=== PATIENT | male | born 1990 | race Caucasian/White ===

== ENCOUNTER 2017-05-31 23:18 | Emergency (ER) | payer MEDICAID ==
[2017-05-31 23:46] LABS: HEMATOCRIT 39.4 % (42.0-54.0); HEMOGLOBIN 13.7 g/dL (13.5-17.5); LYMPHOCYTES 23.7 % (15-50); MCH 29.7 pg (26.0-34.0); MCHC 34.8 g/dL (31.0-37.0); MCV 85.5 fL (80.0-100.0); MEAN PLATELET VOLUME 8.5 fL (7.4-10.4); NEUTROPHILS 70.1 % (40-80); PLATELET COUNT 255 10x3/uL (130-400); RBC 4.61 10x6/uL (4.20-6.10); RDW 11.4 % (11.5-14.5); WBC 7.5 10x3/uL (4.8-10.8)
[2017-06-01 00:15] LABS: ALBUMIN 4.2 g/dL (3.4-5.0); ALKALINE PHOSPHATASE 45 U/L (46-116); ALT (SGPT) 26 U/L (10-68); BILIRUBIN - TOTAL 0.22 mg/dL (0.2-1.3); CALC OSMOLALITY 279 mosm/kg (275-300); CALCIUM 9.1 mg/dL (8.5-10.1); CARBON DIOXIDE 26.2 mmol/L (21.0-32.0); CHLORIDE - SERUM 104 mmol/L (98-107); CREATININE - SERUM 0.9 mg/dL (0.6-1.3); GLUCOSE 106 mg/dL (74-106); POTASSIUM - SERUM 3.6 mmol/L (3.5-5.1); PROTEIN - SERUM 7.8 g/dL (6.4-8.2); SODIUM 139 mmol/L (136-145); UREA NITROGEN 18 mg/dL (7-18); eGFR NON AFRICAN AMERICAN > 90 mL/min (90-120)
== END 2017-06-01 02:30 | disposition home or self-care (01) ==
LOC: D.ER 23:18
PROVIDERS: Emergency Medicine
DX: F41.9 Anxiety disorder, unspecified (principal); Z91.138 Patient's unintentional underdosing of medication regimen for other reason; F32.9 Major depressive disorder, single episode, unspecified; F17.200 Nicotine dependence, unspecified, uncomplicated

== ENCOUNTER 2017-06-04 14:03 | Emergency (ER) | payer MEDICAID ==
[2017-06-04 14:53] LABS: BASOPHILS 0.2 % (0-2); EOSINOPHILS 1.1 % (0-7); HEMATOCRIT 37.9 % (42.0-54.0); HEMOGLOBIN 13.4 g/dL (13.5-17.5); IMMATURE GRANULOCYTES 0.2 % (0-5); LYMPHOCYTES 23.1 % (15-50); MCH 30.5 pg (26.0-34.0); MCHC 35.4 g/dL (31.0-37.0); MCV 86.1 fL (80.0-100.0); MEAN PLATELET VOLUME 8.9 fL (7.4-10.4); MONOCYTES 5.3 % (2-11); NEUTROPHILS 70.1 % (40-80); PLATELET COUNT 229 10x3/uL (130-400); RDW 11.6 % (11.5-14.5); WBC 5.3 10x3/uL (4.8-10.8)
[2017-06-04 15:12] LABS: ALBUMIN 3.7 g/dL (3.4-5.0); ALKALINE PHOSPHATASE 44 U/L (46-116); ALT (SGPT) 25 U/L (10-68); BILIRUBIN - TOTAL 0.19 mg/dL (0.2-1.3); CALC OSMOLALITY 280 mosm/kg (275-300); CALCIUM 8.3 mg/dL (8.5-10.1); CARBON DIOXIDE 26.8 mmol/L (21.0-32.0); CHLORIDE - SERUM 105 mmol/L (98-107); CREATININE - SERUM 0.8 mg/dL (0.6-1.3); GLUCOSE 120 mg/dL (74-106); POTASSIUM - SERUM 3.5 mmol/L (3.5-5.1); PROTEIN - SERUM 7.1 g/dL (6.4-8.2); SODIUM 141 mmol/L (136-145); UREA NITROGEN 11 mg/dL (7-18); VALPROIC ACID (DEPAKOTE) 9.5 ug/mL (50.0-100.0); eGFR NON AFRICAN AMERICAN > 90 mL/min (90-120)
[2017-06-04 19:26] LABS: UDS - AMPHET NEGATIVE QUAL (NEGATIVE); UDS - BARB NEGATIVE QUAL (NEGATIVE); UDS - BENZO NEGATIVE QUAL (NEGATIVE); UDS - COCAINE NEGATIVE QUAL (NEGATIVE); UDS - METH NEGATIVE QUAL (NEGATIVE); UDS - OPIATE NEGATIVE QUAL (NEGATIVE); UDS - PCP NEGATIVE QUAL (NEGATIVE); UDS - THC NEGATIVE QUAL (NEGATIVE)
[2017-06-04 19:38] LABS: APPEARANCE HAZY (CLEAR); BILIRUBIN NEGATIVE (NEGATIVE); COLOR YELLOW (YELLOW); GLUCOSE NEGATIVE (NEGATIVE); KETONE NEGATIVE (NEGATIVE); LEUKOCYTE ESTERASE NEGATIVE (NEGATIVE); NITRITE NEGATIVE (NEGATIVE); PROTEIN NEGATIVE (NEGATIVE); UROBILINOGEN NORMAL (NORMAL)
== END 2017-06-05 17:15 | disposition short-term general hospital (02) ==
LOC: D.ER 14:03
PROVIDERS: Emergency Medicine
DX: R45.851 Suicidal ideations (principal); F32.9 Major depressive disorder, single episode, unspecified

== ENCOUNTER 2017-11-04 18:51 | Emergency (ER) | payer MEDICAID ==
[2017-11-04 19:33] LABS: BASOPHILS 0.1 % (0-2); EOSINOPHILS 1.5 % (0-7); HEMATOCRIT 42.4 % (42.0-54.0); HEMOGLOBIN 14.9 g/dL (13.5-17.5); IMMATURE GRANULOCYTES 0.2 % (0-5); LYMPHOCYTES 23.7 % (15-50); MCHC 35.1 g/dL (31.0-37.0); MCV 88.3 fL (80.0-100.0); MEAN PLATELET VOLUME 8.8 fL (7.4-10.4); MONOCYTES 6.3 % (2-11); NEUTROPHILS 68.2 % (40-80); WBC 8.6 10x3/uL (4.8-10.8)
[2017-11-04 19:36] LABS: PLATELET COUNT 363 10x3/uL (130-400)
[2017-11-04 20:01] LABS: ALT (SGPT) 24 U/L (10-68); CALC OSMOLALITY 279 mosm/kg (275-300); CALCIUM 9.6 mg/dL (8.5-10.1); CARBON DIOXIDE 31.4 mmol/L (21.0-32.0); CHLORIDE - SERUM 102 mmol/L (98-107); CREATININE - SERUM 0.8 mg/dL (0.6-1.3); GLUCOSE 105 mg/dL (74-106); POTASSIUM - SERUM 3.7 mmol/L (3.5-5.1); SODIUM 141 mmol/L (136-145); UREA NITROGEN 11 mg/dL (7-18); eGFR NON AFRICAN AMERICAN > 90 mL/min (90-120)
[2017-11-04 20:17] LABS: ALKALINE PHOSPHATASE 73 U/L (46-116); BILIRUBIN - TOTAL 0.16 mg/dL (0.2-1.3); PROTEIN - SERUM 8.1 g/dL (6.4-8.2)
== END 2017-11-04 20:30 | disposition home or self-care (01) ==
LOC: D.ER 18:51
PROVIDERS: Physician Assistant
DX: G43.909 Migraine, unspecified, not intractable, without status migrainosus (principal); F17.200 Nicotine dependence, unspecified, uncomplicated

== ENCOUNTER 2017-11-05 16:25 | Emergency (ER) | payer MEDICAID | END 2017-11-05 18:24 | disposition home or self-care (01) | LOC: D.ER 16:25 | DX: R11.0 Nausea (principal); F17.200 Nicotine dependence, unspecified, uncomplicated ==

== ENCOUNTER 2017-12-15 15:46 | Inpatient (IN) | payer MEDICAID ==
[~2017-12-15] VITALS: Ht 175.3 cm; Wt 78.0 kg
--- NOTE | ~2017-12-15 | CN ---
PATIENT NAME:DAVID FABIAN MEDICAL RECORD: [id number] : 89 LOCATION:[facility] – [place]- ADMIT DATE: 12/15/17 ACCOUNT: [id number] CONSULTING PHYSICIAN: LANCE NINO MD REFERRING PHYSICIAN: JESUS BRICEÑO MD DATE OF CONSULTATION: 12/16/2017 IDENTIFYING DATA: The patient is 27 years old and he is admitted to the hospital on a voluntary basis. CHIEF COMPLAINT: Overdose. HISTORY OF PRESENT ILLNESS: The patient had some suicidal thoughts, took a large amount of Depakote and did so with the intention of killing himself. It is unclear to me how he made his way to the hospital or more accurately who called the ambulance, but the patient made suicidal statements after arriving here. He have a Depakote level that is still more than twice the upper range of therapeutic and he is having the sedation associated with a toxic Depakote level. Other vital indicators are stable. His Depakote level has declined. MENTAL STATUS EXAMINATION: The patient is sleepy. He is arousable, but not interviewable. ASSESSMENT: 1. Major depression. 2. Status post Depakote overdose. PLAN: The patient should be transitioned to acute inpatient psychiatric care once medically stabilized. He has a history of depression. I do not know if he has a history of overdose. 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 I do not have information about how acute that is. Once again, once he is medically stable, he should be transferred to acute inpatient psychiatric care to stabilize his mood and that should be a priority in terms of addressing his additional or other needs. TRANSINT:[id number] Voice Confirmation ID: [id number] DOCUMENT ID: [id number] LANCE NINO MD at 1024 CC: [id number] DICTATION DATE: 12/16/17 1101 SCRUB NURSE: 12/16/17 1123 DIS IN 12/17/17 [id number] [place] [id number]
[2017-12-15 16:17] LABS: BASOPHILS 0.2 % (0-2); EOSINOPHILS 2.1 % (0-7); HEMATOCRIT 38.2 % (42.0-54.0); HEMOGLOBIN 13.1 g/dL (13.5-17.5); LYMPHOCYTES 29.5 % (15-50); MCH 30.4 pg (26.0-34.0); MCHC 34.3 g/dL (31.0-37.0); MCV 88.6 fL (80.0-100.0); MONOCYTES 9.2 % (2-11); RBC 4.31 10x6/uL (4.20-6.10); RDW 11.9 % (11.5-14.5); WBC 4.2 10x3/uL (4.8-10.8)
[2017-12-15 16:23] LABS: PLATELET COUNT 229 10x3/uL (130-400)
[2017-12-15 16:45] LABS: ALBUMIN 3.7 g/dL (3.4-5.0); ALKALINE PHOSPHATASE 63 U/L (46-116); ALT (SGPT) 15 U/L (10-68); BILIRUBIN - TOTAL 0.17 mg/dL (0.2-1.3); CALC OSMOLALITY 280 mosm/kg (275-300); CALCIUM 8.7 mg/dL (8.5-10.1); CARBON DIOXIDE 26.8 mmol/L (21.0-32.0); CHLORIDE - SERUM 105 mmol/L (98-107); CREATININE - SERUM 0.9 mg/dL (0.6-1.3); GLUCOSE 136 mg/dL (74-106); POTASSIUM - SERUM 3.8 mmol/L (3.5-5.1); SODIUM 140 mmol/L (136-145); UREA NITROGEN 13 mg/dL (7-18); eGFR NON AFRICAN AMERICAN > 90 mL/min (90-120)
[2017-12-15 16:46] LABS: VALPROIC ACID (DEPAKOTE) 92.4 ug/mL (50.0-100.0)
[2017-12-15 17:19] LABS: APPEARANCE HAZY (CLEAR); BILIRUBIN NEGATIVE (NEGATIVE); COLOR YELLOW (YELLOW); GLUCOSE NEGATIVE (NEGATIVE); KETONE NEGATIVE (NEGATIVE); NITRITE NEGATIVE (NEGATIVE); PROTEIN NEGATIVE (NEGATIVE); SPECIFIC GRAVITY 1.015 (1.005-1.020); UROBILINOGEN NORMAL (NORMAL)
[2017-12-15 17:21] LABS: AMORPHOUS SEDIMENT >1+ /lpf (NONE SEEN); BACTERIA FEW /hpf (NONE SEEN); WHITE CELLS - URINE 0-5 /hpf (0-5)
[2017-12-15 17:46] LABS: UDS - AMPHET NEGATIVE QUAL (NEGATIVE); UDS - BARB NEGATIVE QUAL (NEGATIVE); UDS - BENZO NEGATIVE QUAL (NEGATIVE); UDS - COCAINE NEGATIVE QUAL (NEGATIVE); UDS - OPIATE NEGATIVE QUAL (NEGATIVE); UDS - PCP NEGATIVE QUAL (NEGATIVE); UDS - THC NEGATIVE QUAL (NEGATIVE)
[2017-12-16 06:09] LABS: BASOPHILS 0 % (0-2); EOSINOPHILS 0.3 % (0-7); HEMATOCRIT 39.2 % (42.0-54.0); HEMOGLOBIN 13.1 g/dL (13.5-17.5); IMMATURE GRANULOCYTES 0.3 % (0-5); LYMPHOCYTES 19.9 % (15-50); MCH 30.1 pg (26.0-34.0); MCHC 33.4 g/dL (31.0-37.0); MCV 90.1 fL (80.0-100.0); MEAN PLATELET VOLUME 9.1 fL (7.4-10.4); MONOCYTES 1.5 % (2-11); PLATELET COUNT 205 10x3/uL (130-400); RBC 4.35 10x6/uL (4.20-6.10); WBC 3.3 10x3/uL (4.8-10.8)
[2017-12-16 06:41] LABS: ALBUMIN 3.3 g/dL (3.4-5.0); ALKALINE PHOSPHATASE 59 U/L (46-116); CALC OSMOLALITY 290 mosm/kg (275-300); CALCIUM 7.9 mg/dL (8.5-10.1); CARBON DIOXIDE 24.3 mmol/L (21.0-32.0); CHLORIDE - SERUM 110 mmol/L (98-107); GLUCOSE 115 mg/dL (74-106); POTASSIUM - SERUM 3.8 mmol/L (3.5-5.1); PROTEIN - SERUM 6.6 g/dL (6.4-8.2); SODIUM 146 mmol/L (136-145); UREA NITROGEN 11 mg/dL (7-18); eGFR NON AFRICAN AMERICAN > 90 mL/min (90-120)
[2017-12-16 06:48] LABS: ALT (SGPT) 36 U/L (10-68)
[2017-12-16 06:49] LABS: VALPROIC ACID (DEPAKOTE) 246.7 ug/mL (50.0-100.0)
[2017-12-16] MEDS ORDERED: BENZTROPINE ME0.5 MG (11:58)
[2017-12-16] MEDS ORDERED: LOXAPINE5 MG (11:58)
[2017-12-16] MEDS ORDERED: DEPAKOTE500 MG (11:58)
[2017-12-16] MEDS ORDERED: PAROXETINE HCL10 MG (11:59)
== END 2017-12-17 01:09 | disposition short-term general hospital (02) | DRG 918 ==
LOC: D.ER 15:46 → D.SDCHOLD 18:08
PROVIDERS: Emergency Medicine; Family Medicine
DX: T42.6X2A Poisoning by other antiepileptic and sedative-hypnotic drugs, intentional self-harm, initial encounter (principal); T43.592A Poisoning by other antipsychotics and neuroleptics, intentional self-harm, initial encounter; T43.222A Poisoning by selective serotonin reuptake inhibitors, intentional self-harm, initial encounter; T44.3X2A Poisoning by other parasympatholytics [anticholinergics and antimuscarinics] and spasmolytics, intentional self-harm, initial encounter; F32.9 Major depressive disorder, single episode, unspecified; D43.0 Neoplasm of uncertain behavior of brain, supratentorial

== ENCOUNTER 2018-04-26 16:23 | Emergency (ER) | payer MEDICAID ==
[~2018-04-26] VITALS: Ht 175.3 cm; Wt 72.8 kg
[~2018-04-26 16:23] MED LIST: BENZTROPINE ME0.5 MG; DEPAKOTE500 MG; LOXAPINE5 MG; PAROXETINE HCL10 MG
[2018-04-26 16:26] VITALS: Ht 175.3 cm; Wt 72.8 kg
[2018-04-26] MEDS ORDERED: SEROQUEL300 MG PO (16:28)
[2018-04-26] MEDS ORDERED: INVEGA6 MG/BLIST PO (16:28)
[2018-04-26] MEDS ORDERED: LITHOBID 300 M300 MG PO (16:28)
[2018-04-26] MEDS ORDERED: TRILEPTAL300 MG PO (16:29)
[2018-04-26 17:14] LABS: BASOPHILS 0.1 % (0-2); HEMATOCRIT 38.9 % (42.0-54.0); HEMOGLOBIN 13.6 g/dL (13.5-17.5); IMMATURE GRANULOCYTES 0.1 % (0-5); LYMPHOCYTES 21.9 % (15-50); MCH 30.4 pg (26.0-34.0); MEAN PLATELET VOLUME 8.8 fL (7.4-10.4); NEUTROPHILS 68.9 % (40-80); PLATELET COUNT 213 10x3/uL (130-400); RBC 4.47 10x6/uL (4.20-6.10); RDW 11.9 % (11.5-14.5); WBC 7.1 10x3/uL (4.8-10.8)
[2018-04-26 17:17] LABS: APPEARANCE HAZY (CLEAR); COLOR YELLOW (YELLOW)
[2018-04-26 17:18] LABS: BILIRUBIN NEGATIVE (NEGATIVE); GLUCOSE NEGATIVE (NEGATIVE); KETONE NEGATIVE (NEGATIVE); NITRITE NEGATIVE (NEGATIVE); PROTEIN NEGATIVE (NEGATIVE); UROBILINOGEN NORMAL (NORMAL); WHITE CELLS - URINE OCC /hpf (0-5)
[2018-04-26 17:19] LABS: AMORPHOUS SEDIMENT <1+ /lpf (NONE SEEN); BACTERIA MODERATE /hpf (NONE SEEN)
[2018-04-26 17:24] LABS: UDS - AMPHET NEGATIVE QUAL (NEGATIVE); UDS - BARB NEGATIVE QUAL (NEGATIVE); UDS - BENZO NEGATIVE QUAL (NEGATIVE); UDS - COCAINE NEGATIVE QUAL (NEGATIVE); UDS - OPIATE NEGATIVE QUAL (NEGATIVE); UDS - PCP NEGATIVE QUAL (NEGATIVE); UDS - THC POSITIVE QUAL (NEGATIVE)
[2018-04-26 17:37] LABS: ALBUMIN 3.6 g/dL (3.4-5.0); ALKALINE PHOSPHATASE 57 U/L (46-116); ALT (SGPT) 21 U/L (10-68); CALC OSMOLALITY 280 mosm/kg (275-300); CALCIUM 8.8 mg/dL (8.5-10.1); CARBON DIOXIDE 27.4 mmol/L (21.0-32.0); CHLORIDE - SERUM 107 mmol/L (98-107); CREATININE - SERUM 0.9 mg/dL (0.6-1.3); GLUCOSE 114 mg/dL (74-106); POTASSIUM - SERUM 3.2 mmol/L (3.5-5.1); PROTEIN - SERUM 6.5 g/dL (6.4-8.2); SODIUM 141 mmol/L (136-145); UREA NITROGEN 10 mg/dL (7-18); eGFR NON AFRICAN AMERICAN > 90 mL/min (90-120)
[2018-04-26 22:31] VITALS: BP 108/71
== END 2018-04-26 22:32 ==
LOC: D.ER 16:23
PROVIDERS: Emergency Medicine
DX: R45.850 Homicidal ideations (principal); R44.0 Auditory hallucinations; F17.200 Nicotine dependence, unspecified, uncomplicated

== ENCOUNTER 2018-12-18 00:02 | Emergency (ER) | payer MEDICAID ==
[2018-04-26 16:26] VITALS: Ht 175.3 cm
[~2018-12-18 00:02] MED LIST changes: +INVEGA6 MG/BLIST PO; +LITHOBID 300 M300 MG PO; +SEROQUEL300 MG PO; +TRILEPTAL300 MG PO
[2018-12-18] MEDS ORDERED: DEPAKOTE500 MG (00:09)
[2018-12-18 00:24] LABS: BASOPHILS 0.2 % (0-2); HEMATOCRIT 36.7 % (42.0-54.0); HEMOGLOBIN 12.7 g/dL (13.5-17.5); IMMATURE GRANULOCYTES 0.2 % (0-5); LYMPHOCYTES 30.5 % (15-50); MCH 30.8 pg (26.0-34.0); MCHC 34.6 g/dL (31.0-37.0); MCV 89.1 fL (80.0-100.0); MONOCYTES 8.5 % (2-11); NEUTROPHILS 58.6 % (40-80); PLATELET COUNT 249 10x3/uL (130-400); RBC 4.12 10x6/uL (4.20-6.10); RDW 12.4 % (11.5-14.5); WBC 4.9 10x3/uL (4.8-10.8)
[2018-12-18 00:44] LABS: ALBUMIN 3.4 g/dL (3.4-5.0); ALKALINE PHOSPHATASE 48 U/L (46-116); ALT (SGPT) 18 U/L (10-68); BILIRUBIN - TOTAL 0.17 mg/dL (0.2-1.3); CALC OSMOLALITY 284 mosm/kg (275-300); CALCIUM 8.5 mg/dL (8.5-10.1); CARBON DIOXIDE 27.3 mmol/L (21.0-32.0); CHLORIDE - SERUM 104 mmol/L (98-107); GLUCOSE 130 mg/dL (74-106); MAGNESIUM - SERUM 1.8 mg/dL (1.8-2.4); POTASSIUM - SERUM 3.7 mmol/L (3.5-5.1); PROTEIN - SERUM 7.1 g/dL (6.4-8.2); SODIUM 142 mmol/L (136-145); UREA NITROGEN 12 mg/dL (7-18); eGFR NON AFRICAN AMERICAN > 90 mL/min (90-120)
[2018-12-18 01:35] LABS: APPEARANCE CLEAR (CLEAR); BILIRUBIN NEGATIVE (NEGATIVE); COLOR YELLOW (YELLOW); GLUCOSE NEGATIVE (NEGATIVE); KETONE NEGATIVE (NEGATIVE); NITRITE NEGATIVE (NEGATIVE); PROTEIN NEGATIVE (NEGATIVE); SPECIFIC GRAVITY 1.015 (1.005-1.020); UROBILINOGEN NORMAL (NORMAL)
[2018-12-18 01:42] LABS: UDS - AMPHET NEGATIVE QUAL (NEGATIVE); UDS - BARB NEGATIVE QUAL (NEGATIVE); UDS - BENZO NEGATIVE QUAL (NEGATIVE); UDS - COCAINE NEGATIVE QUAL (NEGATIVE); UDS - OPIATE NEGATIVE QUAL (NEGATIVE); UDS - PCP NEGATIVE QUAL (NEGATIVE); UDS - THC POSITIVE QUAL (NEGATIVE)
[2018-12-18 06:30] VITALS: BP 130/84
== END 2018-12-18 06:32 ==
LOC: D.ER 00:02
PROVIDERS: Emergency Medicine
DX: F32.9 Major depressive disorder, single episode, unspecified (principal); R45.851 Suicidal ideations

== ENCOUNTER 2019-01-03 00:22 | Emergency (ER) | payer MEDICAID ==
[~2019-01-03] VITALS: Ht 175.3 cm; Wt 75.0 kg
[2019-01-03 00:32] VITALS: Ht 175.3 cm; Wt 75.0 kg
[2019-01-03] MEDS ORDERED: PAROXETINE (00:44)
[2019-01-03] MEDS ORDERED: GABAPENTIN (00:45)
[2019-01-03 00:56] LABS: UDS - AMPHET NEGATIVE QUAL (NEGATIVE); UDS - BARB NEGATIVE QUAL (NEGATIVE); UDS - BENZO NEGATIVE QUAL (NEGATIVE); UDS - COCAINE NEGATIVE QUAL (NEGATIVE); UDS - OPIATE NEGATIVE QUAL (NEGATIVE); UDS - PCP NEGATIVE QUAL (NEGATIVE); UDS - THC POSITIVE QUAL (NEGATIVE)
[2019-01-03 00:59] LABS: APPEARANCE CLEAR (CLEAR); BILIRUBIN NEGATIVE (NEGATIVE); COLOR YELLOW (YELLOW); GLUCOSE NEGATIVE (NEGATIVE); KETONE NEGATIVE (NEGATIVE); NITRITE NEGATIVE (NEGATIVE); PROTEIN NEGATIVE (NEGATIVE)
[2019-01-03 01:04] LABS: BACTERIA NONE SEEN /hpf (NONE SEEN); EPITHELIAL CELLS 0-5 /hpf (0-5); RED CELLS - URINE 0-5 /hpf (0-5); WHITE CELLS - URINE 0-5 /hpf (0-5)
[2019-01-03 01:11] LABS: BASOPHILS 0.2 % (0-2); EOSINOPHILS 3.2 % (0-7); HEMATOCRIT 37.3 % (42.0-54.0); HEMOGLOBIN 12.7 g/dL (13.5-17.5); IMMATURE GRANULOCYTES 0.2 % (0-5); LYMPHOCYTES 32.1 % (15-50); MCH 30.8 pg (26.0-34.0); MCV 90.5 fL (80.0-100.0); MEAN PLATELET VOLUME 9.1 fL (7.4-10.4); MONOCYTES 6.5 % (2-11); NEUTROPHILS 57.8 % (40-80); PLATELET COUNT 287 10x3/uL (130-400); RBC 4.12 10x6/uL (4.20-6.10); RDW 12.1 % (11.5-14.5); WBC 6.5 10x3/uL (4.8-10.8)
[2019-01-03 01:25] LABS: ALBUMIN 3.6 g/dL (3.4-5.0); ALKALINE PHOSPHATASE 57 U/L (46-116); ALT (SGPT) 14 U/L (10-68); BILIRUBIN - TOTAL 0.14 mg/dL (0.2-1.3); CALC OSMOLALITY 288 mosm/kg (275-300); CALCIUM 8.7 mg/dL (8.5-10.1); CHLORIDE - SERUM 104 mmol/L (98-107); CREATININE - SERUM 0.9 mg/dL (0.6-1.3); GLUCOSE 101 mg/dL (74-106); PROTEIN - SERUM 7.3 g/dL (6.4-8.2); SODIUM 143 mmol/L (136-145); UREA NITROGEN 24 mg/dL (7-18); eGFR NON AFRICAN AMERICAN > 90 mL/min (90-120)
[2019-01-03 01:26] LABS: VALPROIC ACID (DEPAKOTE) 38.6 ug/mL (50.0-100.0)
[2019-01-03 03:32] VITALS: BP 120/78
== END 2019-01-03 03:35 ==
LOC: D.ER 00:22
PROVIDERS: Family Medicine
DX: R45.851 Suicidal ideations (principal); F31.9 Bipolar disorder, unspecified; R45.850 Homicidal ideations; F17.200 Nicotine dependence, unspecified, uncomplicated

== ENCOUNTER 2019-02-19 16:21 | Emergency (ER) | payer MEDICAID ==
[~2019-02-19 16:21] MED LIST changes: +GABAPENTIN; +PAROXETINE
== END 2019-02-19 17:37 | disposition home or self-care (01) ==
LOC: D.ER 16:21
DX: F99 Mental disorder, not otherwise specified (principal); Z91.19 Patient's noncompliance with other medical treatment and regimen

== ENCOUNTER 2019-03-23 21:29 | Emergency (ER) | payer OTHER ==
[~2019-03-23] VITALS: Ht 175.3 cm; Wt 75.0 kg
[~2019-03-23 21:29] MED LIST changes: -BENZTROPINE ME0.5 MG; +BENZTROPINE ME0.5 MG PO; +DEPAKOTE500 MG PO; -GABAPENTIN; +GABAPENTIN PO; -PAROXETINE; +PAROXETINE PO
[2019-03-23 21:36] VITALS: Ht 175.3 cm; Wt 75.0 kg
[2019-03-23] MEDS ORDERED: MOBIC7.5 MG PO (21:43)
[2019-03-23 22:24] VITALS: BP 125/84
== END 2019-03-23 22:25 | disposition home or self-care (01) ==
LOC: D.ER 21:29
DX: S61.512A Laceration without foreign body of left wrist, initial encounter (principal); X78.9XXA Intentional self-harm by unspecified sharp object, initial encounter; Y93.89 Activity, other specified; Y92.019 Unspecified place in single-family (private) house as the place of occurrence of the external cause

== ENCOUNTER 2019-04-19 23:34 | Emergency (ER) | payer OTHER ==
[~2019-04-19] VITALS: Ht 175.3 cm; Wt 70.5 kg
[~2019-04-19 23:34] MED LIST changes: +MOBIC7.5 MG PO
[2019-04-19 23:42] VITALS: Ht 175.3 cm; Wt 70.5 kg
--- NOTE | 2019-04-20 00:21 | NUR ---
DR NINO NOTIFIED AND 1:1 SITTER OBSERVATION ORDERED. SITTER AT BEDSIDE, NOTIFIED CHARGE NURSE AND ATTENDING IN REGARDS TO ASSESSMENT FINDINGS, RESOURCES GIVEN TO PT AND SAFETY PLAN INITIATED.
[2019-04-20 00:37] LABS: APPEARANCE CLEAR (CLEAR); COLOR YELLOW (YELLOW); SPECIFIC GRAVITY 1.025 (1.005-1.020)
[2019-04-20 00:38] LABS: BILIRUBIN NEGATIVE (NEGATIVE); GLUCOSE NEGATIVE (NEGATIVE); KETONE NEGATIVE (NEGATIVE); NITRITE NEGATIVE (NEGATIVE); PROTEIN NEGATIVE (NEGATIVE); UROBILINOGEN NORMAL (NORMAL)
[2019-04-20 00:44] LABS: UDS - AMPHET NEGATIVE QUAL (NEGATIVE); UDS - BARB NEGATIVE QUAL (NEGATIVE); UDS - BENZO NEGATIVE QUAL (NEGATIVE); UDS - COCAINE NEGATIVE QUAL (NEGATIVE); UDS - OPIATE NEGATIVE QUAL (NEGATIVE); UDS - PCP NEGATIVE QUAL (NEGATIVE); UDS - THC POSITIVE QUAL (NEGATIVE)
[2019-04-20 00:46] LABS: BASOPHILS 0.1 % (0-2); EOSINOPHILS 2.4 % (0-7); HEMATOCRIT 35.3 % (42.0-54.0); HEMOGLOBIN 12.1 g/dL (13.5-17.5); IMMATURE GRANULOCYTES 0.7 % (0-5); LYMPHOCYTES 29.6 % (15-50); MCH 29.9 pg (26.0-34.0); MCHC 34.3 g/dL (31.0-37.0); MCV 87.2 fL (80.0-100.0); MEAN PLATELET VOLUME 8.4 fL (7.4-10.4); MONOCYTES 5.7 % (2-11); NEUTROPHILS 61.5 % (40-80); PLATELET COUNT 276 10x3/uL (130-400); RBC 4.05 10x6/uL (4.20-6.10); WBC 7.5 10x3/uL (4.8-10.8)
[2019-04-20 01:11] LABS: ALBUMIN 3.2 g/dL (3.4-5.0); ALKALINE PHOSPHATASE 61 U/L (46-116); ALT (SGPT) 20 U/L (10-68); BILIRUBIN - TOTAL 0.13 mg/dL (0.2-1.3); CALC OSMOLALITY 282 mosm/kg (275-300); CALCIUM 8.7 mg/dL (8.5-10.1); CARBON DIOXIDE 28.8 mmol/L (21.0-32.0); CHLORIDE - SERUM 106 mmol/L (98-107); CREATININE - SERUM 0.8 mg/dL (0.6-1.3); GLUCOSE 90 mg/dL (74-106); MAGNESIUM - SERUM 1.8 mg/dL (1.8-2.4); PROTEIN - SERUM 6.7 g/dL (6.4-8.2); SODIUM 142 mmol/L (136-145); UREA NITROGEN 12 mg/dL (7-18); VALPROIC ACID (DEPAKOTE) 28.7 ug/mL (50.0-100.0); eGFR NON AFRICAN AMERICAN > 90 mL/min (90-120)
[2019-04-20 03:48] VITALS: BP 120/72
== END 2019-04-20 07:40 ==
LOC: D.ER 23:34
PROVIDERS: Family Medicine
DX: R45.851 Suicidal ideations (principal)